=== PATIENT | female | born 1975 | race Caucasian/White ===

== ENCOUNTER 2017-01-06 17:09 | Inpatient (IN) | payer BC ==
--- NOTE | ~2017-01-06 | HP ---
History And Physical [id number] [place]. [address] NAME: FRANDY NICHOLE : 79 STATUS : ADM IN [facility]#: [id number] AGE: 41 ADM/REG DATE : 01/06/17 MR#: [id number] REPORT SERV DATE: 01/07/17 DICTATED BY: VINCENT ERIC DATE: 01/07/17 REPORT STATUS : Draft TRANSCRIBED BY: MODL DATE: 01/07/17 DATE OF ADMISSION: 01/06/2017 REASON FOR ADMISSION: Obstructing right ureteral calculi after lithotripsy in a solitary kidney, anuria. HISTORY OF PRESENT ILLNESS: Ms. Nichole is a 41-year-old white female who is the patient of Dr. Myers, who underwent uneventful right ESWL on 01/05/2017. She was doing well until yesterday afternoon when she noticed some increased pain and anuria for approximately six hours. She came to the [facility] Emergency Department. She had a CT, which revealed two discrete sizeable distal ureteral fragments each measuring approximately 3 mm in size. The patient's creatinine was 3.43 up from her normal baseline. Due to all this, plans were made to admit her to the hospital. She was not n.p.o. and immediate stent placement could not be undertaken. Therefore, plans were made to make her n.p.o. after midnight and take her for right ureteral stent decompression if she had not passed her stone fragments or if she had not begin urinating overnight. The patient was successfully able to void approximately 1.3 L of urine. Additionally, she expelled two large stone fragments and her pain is significantly diminished. Her creatinine also decreased to 3.09 overnight. PAST MEDICAL HISTORY: Nephrolithiasis and left nephrectomy by Dr. Kamlesh Barrios secondary to left ureteral scarring from stone disease. HOME MEDICATIONS: Acebutolol, Tylenol, Xanax, Jessica-Wade, Zyrtec, Colace, Cymbalta, Endocet, Zoloft, and cranberry tablets. ALLERGIES: PENICILLIN AND SULFA. SOCIAL HISTORY: Does not drink, smoke, or use illicit drugs. FAMILY HISTORY: No urologic disease. REVIEW OF SYSTEMS: Thorough 13-point review of systems was performed by me and if not noted to be positive in the history of present illness or past medical history negative. PHYSICAL EXAMINATION: GENERAL: A well-appearing white female, in no distress. VITAL SIGNS: Temperature 98.9, pulse 94, respiration 18, and blood pressure 115/58. HEENT: Normocephalic, atraumatic. Eyes are anicteric. Nares are patent. Oropharynx is clear. NECK: Supple. HEART: Regular rate and rhythm. ABDOMEN: Soft, nonpalpable, and nontender bladder. Mild right CVA tenderness. No involuntary guarding or rebound. MUSCULOSKELETAL: Moves all extremities well. NEUROLOGIC: No focal deficits. History And Physical [address] [address] NAME: FRANDY NICHOLE : 79 STATUS : ADM IN [facility]#: [id number] AGE: 41 ADM/REG DATE : 01/06/17 MR#: [id number] REPORT SERV DATE: 01/07/17 DICTATED BY: VINCENT ERIC DATE: 01/07/17 REPORT STATUS : Draft TRANSCRIBED BY: NINFA DATE: 01/07/17 PSYCHIATRIC: Pleasant, appropriate. LABORATORY DATA: Creatinine this morning is 3.09, down from 3.43 yesterday. White blood cell count 10,100. Urinalysis is infected-appearing; however, upon questioning the patient, she is currently on her menstrual period. Additionally, the urine specimen was spontaneously voided after approximately one hour of attempted Patrick catheter placement while in the floor. There are no nitrites. I believe reflux culture will be sent, but again, I suspect that this is contaminant from instrumentation and menstrual blood rather than a true urinary tract infection. The patient is certainly not manifesting any systemic symptoms of urinary tract infection at this time, and is currently voiding well. IMAGING: CT stone protocol performed in the emergency department revealed a two discrete 3 mm or so distal right ureteral fragments. This was different than the previous KUB at the time of her lithotripsy. She is since spontaneously voided two large stone fragments along with some laura debris, which is up in her room. ASSESSMENT: Right renal calculi causing obstruction in the setting of solitary kidney. Anuria, which has since resolved. PLAN: The patient was originally scheduled for right ureteral stent decompression should she will not pass the stone fragments or begin urinating; however, overnight, her labs improved and she began spontaneously voiding. She is not currently having any significant discomfort. Therefore, I have her recommended cancelling stent placement today. I think that we will send her back to the floor and obtain another KUB in the morning. We will leave her n.p.o. after midnight. We will continue to closely monitor her urine output, labs, vitals, etc. I discussed this with the patient and her , did discuss all facet of this situation, and she provided her informed consent to proceed as noted. RAC/MODL Vincent Eric M.D. / [id number] CC: Surinder Myers M.D. UNKNOWN
[2017-01-06 14:50] LABS: BASOPHILS 0.2 %; BASOPHILS ABSOLUTE 0.02 10/3/uL (0.0-0.16); EOSINOPHILS 0.3 %; EOSINOPHILS ABSOLUTE 0.03 10/3/uL (0.0-0.53); ER CBC TAT 0 Hrs 07 Mins; HEMOGLOBIN 11.7 g/dL (12.0-16.0); IMMATURE GRANULOCYTES 0.2 %; IMMATURE GRANULOCYTES ABSOLUTE 0.02 10/3/uL (0.0-0.11); LYMPHOCYTES 9.4 %; MEAN CORPUS HGB CONC 33.4 g/dL (32.0-36.0); MEAN CORPUSCULAR HEMOGLOB 30.7 pg (26.0-34.0); MEAN CORPUSCULAR VOLUME 91.9 fL (80-100); MONOCYTES 7.5 %; MONOCYTES ABSOLUTE 0.88 10/3/uL (0.21-1.20); NEUTROPHILS 82.4 %; NEUTROPHILS ABSOLUTE 9.62 10/3/uL (2.02-8.40); RBC DISTRIBUTION WIDTH 13.7 % (12.0-16.0); RED CELL COUNT 3.81 10/6/uL (4.0-5.6); WHITE BLOOD CELLS 11.7 10/3/uL (4.5-10.5)
[2017-01-06 14:51] LABS: MANUAL DIFF NO %; PLATELET COUNT 264 10/3/uL (150-400)
[2017-01-06 15:02] LABS: CALCIUM, SERUM 8.5 MG/DL (8.5-10.4); CHLORIDE, SERUM 103 MMOL/L (96-112); CO2 (CARBON DIOXIDE) 28 MMOL/L (24-34); POTASSIUM, SERUM 4.6 MMOL/L (3.5-5.3); SODIUM, SERUM 133 MMOL/L (135-148)
[2017-01-06 15:03] LABS: BUN (BLOOD UREA NITROGEN) 26 MG/DL (6-23); CREATININE 3.43 MG/DL (0.55-1.02); GFR AFRICAN AMERICAN 19 ML/MIN (>=60); GFR NON AFRICAN AMERICAN 16 ML/MIN (>=60); GLUCOSE, SERUM 99 MG/DL (60-99)
[~2017-01-06 17:09] MED LIST: ACEBUTOLOL HCL200 MG PO; ACEBUTOLOL PO; ACET500CAP PO; ADVIL PO; CIP5 PO; CRANBERRY W/ VIT C PO; CRANBERRY300 MG PO; CYMBALTA PO; CYMBALTA30 PO; CYMBALTA60 PO; DSS PO; EFFEX75 PO; EFFEXXR75 PO; ENDOCET1 TAB PO; FERROUS SULF325 M1 PO; FISH OIL1200 MG PO; FLUCON2 PO; GAVISCO2 PO; IRON325 MG PO; MINIPRESS 1 MG C1 MG PO; MULTIVIT/MIN PO; PCET PO; PERCOCET1 TA2 PO; PERCOCET1 TA4 PO; PR25 PO; PYR200 PO; TOPAMAX25 PO; VITAMIN D31000 UNIT PO; X5 PO; ZOFRAN4 PO; ZOL100 PO; ZOLOFT25 MG PO; ZYRTEC ALLGY10 MG PO; [UNRECOGNIZED DRUG - OTHER]; [UNRECOGNIZED DRUG - OTHER]
[2017-01-06 21:59] LABS: ASCORBIC ACID (UR NOT ORDER) NEG (NEG); BILIRUBIN, URINE NEGATIVE (NEG); KETONE, URINE NEGATIVE (NEG); LEUKOCYTE ESTERASE(NOT OR LARGE (NEG); WBC (NOT ORDERED) (RFLEX) 109 (0-5)
[2017-01-07 06:10] LABS: BASOPHILS 0.1 %; BASOPHILS ABSOLUTE 0.01 10/3/uL (0.0-0.16); EOSINOPHILS 0.7 %; EOSINOPHILS ABSOLUTE 0.07 10/3/uL (0.0-0.53); HEMOGLOBIN 11.2 g/dL (12.0-16.0); IMMATURE GRANULOCYTES 0.3 %; IMMATURE GRANULOCYTES ABSOLUTE 0.03 10/3/uL (0.0-0.11); LYMPHOCYTES 15.9 %; LYMPHOCYTES ABSOLUTE 1.61 10/3/uL (0.67-4.30); MEAN CORPUS HGB CONC 32.9 g/dL (32.0-36.0); MEAN CORPUSCULAR HEMOGLOB 30.4 pg (26.0-34.0); MEAN CORPUSCULAR VOLUME 92.4 fL (80-100); MEAN PLATELET VOLUME 10.1 fL (9.2-13.0); MONOCYTES 8.5 %; MONOCYTES ABSOLUTE 0.86 10/3/uL (0.21-1.20); NEUTROPHILS 74.5 %; NEUTROPHILS ABSOLUTE 7.53 10/3/uL (2.02-8.40); PLATELET COUNT 282 10/3/uL (150-400); RBC DISTRIBUTION WIDTH 14.1 % (12.0-16.0); RED CELL COUNT 3.68 10/6/uL (4.0-5.6); WHITE BLOOD CELLS 10.1 10/3/uL (4.5-10.5)
[2017-01-07 06:11] LABS: MANUAL DIFF NO %
[2017-01-07 06:21] LABS: BUN (BLOOD UREA NITROGEN) 25 MG/DL (6-23); CALCIUM, SERUM 9.1 MG/DL (8.5-10.4); CHLORIDE, SERUM 107 MMOL/L (96-112); CO2 (CARBON DIOXIDE) 26 MMOL/L (24-34); CREATININE 3.09 MG/DL (0.55-1.02); GFR AFRICAN AMERICAN 21 ML/MIN (>=60); GFR NON AFRICAN AMERICAN 18 ML/MIN (>=60); GLUCOSE, SERUM 106 MG/DL (60-99); POTASSIUM, SERUM 4.4 MMOL/L (3.5-5.3); SODIUM, SERUM 139 MMOL/L (135-148)
[2017-01-08 05:39] LABS: BASOPHILS 0.2 %; BASOPHILS ABSOLUTE 0.02 10/3/uL (0.0-0.16); EOSINOPHILS 1.4 %; EOSINOPHILS ABSOLUTE 0.12 10/3/uL (0.0-0.53); HEMATOCRIT 32.9 % (36.0-48.0); HEMOGLOBIN 10.8 g/dL (12.0-16.0); IMMATURE GRANULOCYTES 0.3 %; IMMATURE GRANULOCYTES ABSOLUTE 0.03 10/3/uL (0.0-0.11); LYMPHOCYTES 19.6 %; LYMPHOCYTES ABSOLUTE 1.72 10/3/uL (0.67-4.30); MEAN CORPUS HGB CONC 32.8 g/dL (32.0-36.0); MEAN CORPUSCULAR HEMOGLOB 30.7 pg (26.0-34.0); MEAN CORPUSCULAR VOLUME 93.5 fL (80-100); MEAN PLATELET VOLUME 9.9 fL (9.2-13.0); MONOCYTES 9.4 %; MONOCYTES ABSOLUTE 0.82 10/3/uL (0.21-1.20); NEUTROPHILS 69.1 %; NEUTROPHILS ABSOLUTE 6.05 10/3/uL (2.02-8.40); PLATELET COUNT 315 10/3/uL (150-400); RED CELL COUNT 3.52 10/6/uL (4.0-5.6); WHITE BLOOD CELLS 8.8 10/3/uL (4.5-10.5)
[2017-01-08 05:40] LABS: MANUAL DIFF NO %
[2017-01-08 05:49] LABS: CALCIUM, SERUM 8.6 MG/DL (8.5-10.4); CHLORIDE, SERUM 106 MMOL/L (96-112); GFR AFRICAN AMERICAN 40 ML/MIN (>=60); GFR NON AFRICAN AMERICAN 35 ML/MIN (>=60); GLUCOSE, SERUM 122 MG/DL (60-99); POTASSIUM, SERUM 3.9 MMOL/L (3.5-5.3); SODIUM, SERUM 142 MMOL/L (135-148)
[2017-01-08 05:50] LABS: BUN (BLOOD UREA NITROGEN) 18 MG/DL (6-23); CO2 (CARBON DIOXIDE) 31 MMOL/L (24-34)
[2017-01-08] MEDS ORDERED: PCET PO (08:48)
== END 2017-01-08 11:00 | disposition home or self-care (01) | DRG 691 ==
LOC: ER 17:09 → 4SO 17:13
PROVIDERS: Physician Assistant; Urology
PROC: 0TF6XZZ Fragmentation in Right Ureter, External Approach (ICD-10-PCS; principal; 2017-01-05)
DX: N20.1 Calculus of ureter (principal); N17.9 Acute kidney failure, unspecified; R34 Anuria and oliguria; Z87.442 Personal history of urinary calculi; Z88.2 Allergy status to sulfonamides; Z88.0 Allergy status to penicillin; Z90.5 Acquired absence of kidney; Z53.8 Procedure and treatment not carried out for other reasons; I10 Essential (primary) hypertension; G47.33 Obstructive sleep apnea (adult) (pediatric); Z79.891 Long term (current) use of opiate analgesic; Z79.899 Other long term (current) drug therapy
CPT/HCPCS: 50590; 74000; 74176; 80048; 81001; 84703; 85025; 87086; 93005; 96372; 99284; A9270-GY; J1170; J2250; J2270; J2405; J2550; J3010; Q9967